=== PATIENT | female | born 1975 | race Caucasian/White ===

== ENCOUNTER 2018-08-06 09:18 | Day surgery (SDC) | payer OTHER ==
[2018-08-05 11:23] VITALS: BMI 33.5
[2018-08-06] MEDS ORDERED: Propofol 10 mg/ml Inj (20 ML) ONE (10:10)
--- NOTE | 2018-08-06 10:12 | CP.SDSHP ---
Same Day Surgery H & P - History Proposed Procedure: EGD Pre-Op Diagnosis: SEE NOTES - Previous Medical/Surgical History Misc: Other Pain: 4.Moderate Pain - Allergies Allergies: Allergies No Known Allergies Allergy (Verified 08/05/18 11:24) - Physical Exam General Appearance: N Vital Signs: Vital Signs 08/06/18 09:35 Temperature 97.8 F Pulse Rate 73 Respiratory 19 Rate Blood Pressure 128/78 O2 Sat by Pulse 100 Oximetry Mental Status: Alert & Oriented x3 Neuro: WNL Heart: WNL Lungs: WNL GI: Other - {Optional Preform as Required} Breast: WNL Abdomen: Other Rectal: Other Integument: WNL : WNL Ortho: WNL ENT: WNL - Impression Pt. Evaluated Today:Candidate for Anesthesia & Procedure: Yes - Date & Time Time: 10:12 Short Stay Discharge - Short Stay Discharge Admitting Diagnosis/Reason for Visit: ACUTE GASTRITIS WITHOUT BLEEDING Disposition: HOME/ ROUTINE
[2018-08-06] MEDS ORDERED: Belladonna-Phenobarbital PO STA (10:44)
[2018-08-06 11:03] VITALS: TEMP 98.2
[2018-08-06] MEDS ORDERED: Sucralfate 1 gm/10 ml Oral Susp UD PO ONE (11:05)
[2018-08-06 11:31] VITALS: RESP 14; O2SAT 100
[2018-08-06 13:33] VITALS: BP 106/68; PULSE 54
== END 2018-08-06 12:30 | disposition home or self-care (01) ==
LOC: C.ENDO 09:18
PROVIDERS: ATTEND Specialist
DX: K29.00 Acute gastritis without bleeding (principal); K31.7 Polyp of stomach and duodenum
CPT/HCPCS: 43239; 84703; 88305; 88313; 88342; J2704; J2765